=== PATIENT | female | born 1985 | race Asian ===

== ENCOUNTER 2018-12-24 13:35 | Outpatient (CLI) | payer BC ==
[~2018-12-24 13:35] MED LIST: Iopamidol 370 76% 100 ML VIAL ONE
--- NOTE | 2018-12-24 16:04 | CT ---
CT THORAX WITH CONTRAST CT ABDOMEN WITH CONTRAST CT PELVIS WITH CONTRAST: DATE: 12/24/2018 HISTORY: 33-year-old female with history of right breast cancer presents with ectopic versus pelvic mass found in the referring physician's office ultrasound (report and images are not available). Rule out metastatic disease. COMPARISON: None TECHNIQUE: IV iodinated contrast media: Administered Oral contrast media: Redicat 2 Single phase scans of thorax, abdomen, and pelvis. FINDINGS: Right breast is absent. Lungs are clear. No evidence of pulmonary metastasis, infiltrate, or edema. N o pleural effusion or pneumothorax. No mediastinal or hilar lymphadenopathy. Normal thoracic aorta. No cardiomegaly or pericardial effusion. Normal trachea and major bronchi. Normal liver, pancreas, abdominal aorta, kidneys, adrenals, urinary bladder, appendix, and spleen. No ascites or pneumoperitoneum in the abdominal cavity. No evidence of colonic diverticulitis. No small bowel dilation. No mike hepatis, mesenteric, retroperitoneal, or iliac chain, lymphadenopathy. No suspicious destructive osseous lesion. Thoracic and lumbar vertebral body heights are maintained. Uterus measures 6.5 x 5 x 9.5 cm. Myometrial enhancement homogeneous. There is small amount of free fluid in the right adnexa. Abutting the left posterior aspect of the lower uterine segment, there is an approximately and possib ly 2.5 x 1.5 x 2 cm moderately low density structure which presumably represents the left ovary. There are 2 round ring-enhancing lesions abutting this: One of them abuts the posterior inferior medial aspect of the left ovary measuring approximately 2 x 1.5 x 1.5 cm (axial image 109 of 127, series 3; sagittal image 3 of 180, series 604; and coronal image 80 of 127, series 602). The other one abuts the superior edge of the left ovary and measures approximately 2 x 2 x 1.5 cm (ax ial image 105 of 127 series 3; sagittal image 109 of 180 series 604; coronal image 80 of 127, series 602). In the contralateral right adnexa, there is nonspecific 1 x 1.5 x 1 cm structure with enhancement. IMPRESSION: 1) 2 ring-enhancing structures in the left adnexa of uncertain etiology. Although one of these indivi dually could potentially represent an ectopic , it will be highly unusual to have 2 ectopic pregnancies. Recommend correlation with appearance on pelvic ultrasound and results of serum beta-hCG levels. Serial follow-up pelvic and transvaginal ultrasounds are recommended as clinically indicated. 2) status post right mastectomy. 3) no evidence of metastatic disease.
== END 2018-12-24 13:36 | disposition home or self-care (01) ==
LOC: SCSCT 13:35
PROVIDERS: ATTEND Obstetrics & Gynecology
DX: R19.00 Intra-abdominal and pelvic swelling, mass and lump, unspecified site (principal); Z85.3 Personal history of malignant neoplasm of breast; Z90.11 Acquired absence of right breast and nipple
CPT/HCPCS: 71260; 74177; 84702; 86480

== ENCOUNTER 2020-08-16 15:31 | Outpatient (CLI) | payer BC | END 2020-08-16 15:32 | disposition home or self-care (01) | LOC: DTY/OP 15:31 | PROVIDERS: ATTEND Obstetrics & Gynecology | DX: Z00.8 Encounter for other general examination (principal) | CPT/HCPCS: 97802 ==